=== PATIENT | female | born 1950 | race Caucasian/White ===

== ENCOUNTER 2020-10-20 06:32 | Day surgery (SDC) | payer MEDICARE, OTHER ==
[~2020-10-20] VITALS: Ht 165.1 cm; Wt 69.0 kg
[~2020-10-20 06:32] MED LIST: LEVOTHYROXINE75 MC1 PO; LIPITOR10 MG PO; [UNRECOGNIZED DRUG - OTHER] PO
[2020-10-20] MEDS ORDERED: VITAMIN D3125 MC1 PO (06:56)
--- NOTE | 2020-10-20 08:09 | NUR ---
10/20/20 0809 Olesya Gallagher 0805- PT ARRIVES TO PACU AWAKE ON AND OFF ON HER OWN. PT REPORTS NO PAIN OR NAUSEA. RESP EVEN AND UNLABORED. OXYGEN SAT MID TO HIGH 90'S ON 2L VIA NC. 0809- PT PASSING FLATUS.
--- NOTE | 2020-10-20 08:38 | NUR ---
PT ALERT, ORIENTED AND SUPPORTED BY HER . PT SOMEWHAT DISTRACTED, NEW GRAND CHILD IS TO BE BORN ANY MINUTE. PT HAS HAS PREVIOUS SCOPES, QUESTIONS ASKED ANSWERED. GAVE BLESSING, WILL FOLLOW
--- NOTE | 2020-10-21 18:47 | PATH ---
[facility] [address], [place] [address] Signed SPECIMEN(S): A HEPATIC FLEXURE POLYP SPECIMEN SOURCE: A. HEPATIC FLEXURE POLYP CLINICAL HISTORY: + Cologuard test, polyp. MICROSCOPIC DESCRIPTION: Histologic sections of all submitted blocks are examined by light microscopy. These findings, together with the gross examination, support the pathologic diagnosis. FINAL PATHOLOGIC DIAGNOSIS: Colon, hepatic flexure, polyp, polypectomy: - Tubular adenoma. - Negative for high-grade dysplasia or malignancy. NAL:cml:C2NR GROSS DESCRIPTION: The specimen, labeled "MR, 1," and designated on the requisition "hepatic flexure polyp," is received in formalin and consists of four conway soft tissue fragment(s) that measure 0.2-0.3 cm in greatest dimension. The specimen is entirely submitted in cassette (A1). AT (under the direct supervision of a pathologist) The Gross Description was prepared using a voice recognition system. The report was reviewed for accuracy; however, sound-alike word errors, addition and/or deletions may occur. If there is any question about this report, please contact Client Services. PERFORMING LABORATORY: The technical component was performed by [facility], [address] [place] [id number] (Ms Sql Developer: Wanda Nguyen MD; CLIA# [id number]). [facility] [address] [address] (CLIA# [id number]). Diagnostician: Melanie Alejandre MD Pathologist Electronically Signed 10/21/2020 PATIENT NAME: LAWSON MARQUEZ PATHOLOGY DATE OF : 54 REPORT #: [id number] PHYSICIAN: [facility] PATHOLOGY PCP: ALVIN MCCABE DO REPORT IS CONFIDENTIAL AND NOT TO BE RELEASED WITHOUT AUTHORIZATION [address] [place], [place] [address] Signed Copies: ~ PATIENT NAME: LAWSON MARQUEZ PATHOLOGY DATE OF : 54 REPORT #: [id number] PHYSICIAN: BETTY PATHOLOGY PCP: ALVIN MCCABE DO REPORT IS CONFIDENTIAL AND NOT TO BE RELEASED WITHOUT AUTHORIZATION
--- NOTE | 2020-10-27 14:31 | OR ---
[facility] [address] [place], [place] [address] Signed DATE OF OPERATION: 10/20/2020 SURGEON: Melany Duran MD PREOPERATIVE DIAGNOSES: 1. Polyps. 2. Positive Cologuard test. POSTOPERATIVE DIAGNOSIS: Small polyp, hepatic flexure (excised). PROCEDURES: Total colonoscopy to cecum with cold morcellation polypectomy x1. ANESTHESIA: Intravenous sedation, fentanyl 150 mcg and Versed 7 mg. INDICATIONS: This 70-year-old white woman is a patient Dr. Mccabe. She has no symptoms of bleeding, diarrhea, or constipation and underwent colonoscopy in [address] Alfredo Scott, which was negative. She underwent a Cologuard test under the direction of Dr. Mccabe, which was positive. She is admitted at this time to undergo colonoscopy on that basis. The risks of bleeding, infection, and perforation related to colonoscopy were reviewed with her, she understands and wished to proceed. FINDINGS: The prep was good. Complete colonoscopy was undertaken of the cecum and intubation of the ileum was accomplished as well. The only finding was a small polyp in the hepatic flexure, which was excised with cold morcellation technique. The remaining colon was normal. DESCRIPTION OF PROCEDURE: The patient was brought to the endoscopy suite and placed in lateral decubitus position. Given intravenous sedation to the point of slurred speech and nystagmus with full cardiopulmonary monitoring. Digital rectal examination was normal. An Olympus video colonoscope was passed into the rectum and manipulated throughout the colon. The left colon was a bit tortuous, but once passed it, the scope was passed relatively easily. At the hepatic flexure, there was a small slightly flat polyp, which was clearly adenomatous, this was excised with cold morcellation technique. The scope Electronically Signed By: MELANY DURAN MD 10/27/20 1431 PATIENT NAME: LAWSON MARQUEZ OPERATIVE REPORT DATE OF : 54 REPORT #: [id number] PHYSICIAN: MELANY DURAN MD PCP: KEVIN MCCABE DO REPORT IS CONFIDENTIAL AND NOT TO BE RELEASED WITHOUT AUTHORIZATION [facility] [address] [place], [place] [address] Signed was then advanced ultimately to the cecum. The ileocecal valve and appendiceal orifice were normal. The ileum was easily entered. Terminal ileum appeared normal. Scope was withdrawn. Examination the cecum again showed no sign of abnormality. Careful withdrawal of scope showed no sign of abnormality throughout the remaining examination of the colon. Retroflexed view was normal as well. The scope was removed. The patient was taken to the recovery room in good condition. CONCLUDING DIAGNOSIS: Positive Cologuard test, which manifests finding of a hepatic flexure relatively flat small adenomatous polyp, now excised. PLAN: Recommend repeat colonoscopy in 5 years or sooner if clinically indicated. She will return to the ongoing care of Dr. Mccabe. MD JESUS Saldaña/KIM /[id number] cc: Kevin Mccabe DO Copies: KEVIN MCCABE DO ~ Electronically Signed By: MELANY DURAN MD 10/27/20 1431 PATIENT NAME: JIMMYLAWSON JORDAN OPERATIVE REPORT DATE OF : 54 REPORT #: [id number] PHYSICIAN: MELANY DURAN MD PCP: KEVIN MCCABE DO REPORT IS CONFIDENTIAL AND NOT TO BE RELEASED WITHOUT AUTHORIZATION
== END 2020-10-20 09:25 | disposition home or self-care (01) ==
LOC: DS 06:32 → OPS 06:32 → DS 07:15 → OPS 09:25
PROVIDERS: ATTEND Surgery
PROC: 0DBL8ZZ Excision of Transverse Colon, Via Natural or Artificial Opening Endoscopic (ICD-10-PCS; principal; 2020-10-20 07:15)
DX: D12.3 Benign neoplasm of transverse colon (principal); E03.9 Hypothyroidism, unspecified; E78.5 Hyperlipidemia, unspecified; R19.5 Other fecal abnormalities; Z87.891 Personal history of nicotine dependence
CPT/HCPCS: 88305; 99153; G0500; J2250; J3010; J7121